=== PATIENT | male | born 1960 | race Caucasian/White ===

== ENCOUNTER 2021-09-22 14:39 | Emergency (ER) | payer OTHER, MEDICAID ==
[~2021-09-22] VITALS: Ht 165.1 cm; Wt 67.1 kg
[2021-09-22 14:45] VITALS: BP_SYST 119
[2021-09-22 16:20] LABS: BASOPHILS # (AUTO) 0.1 K/uL (0.0-0.2); BASOPHILS % (AUTO) 1.7 % (0.0-2.0); EOSINOPHILS # (AUTO) 0.2 K/uL (0.0-0.4); EOSINOPHILS % (AUTO) 2.2 % (0.0-4.0); HEMATOCRIT 42.4 % (36-54); HEMOGLOBIN 14.3 g/dL (14.0-18.0); LYMPHOCYTES # (AUTO) 3.2 K/uL (1.0-5.5); LYMPHOCYTES % (AUTO) 43.8 % (20.5-51.5); MEAN CORPUSCULAR HEMOGLOBIN 31 pg (27-31); MEAN CORPUSCULAR HGB CONC 34 % (32-36); MEAN CORPUSCULAR VOLUME 92 fL (79.0-98.0); MONOCYTES # (AUTO) 0.6 K/uL (0.0-1.0); MONOCYTES % (AUTO) 7.7 % (1.7-9.3); NEUTROPHILS # (AUTO) 3.2 K/uL (1.8-7.7); NEUTROPHILS % (AUTO) 44.6 % (40.0-70.0); PLATELET COUNT (AUTO) 215 K/uL (130-430); RED BLOOD CELL COUNT(AUTO) 4.61 MIL/uL (4.2-6.2); RED CELL DISTRIBUTION WIDTH 13.2 % (9.0-15.0); WHITE BLOOD COUNT (AUTO) 7.2 K/uL (4.8-10.8)
[2021-09-22 16:42] LABS: ANION GAP 12 (5-15); CHLORIDE 105 mmol/L (98-107); CREATININE 0.99 mg/dL (0.55-1.30); GLUCOSE 90 mg/dL (70-99); POTASSIUM 5.1 mmol/L (3.5-5.1); SODIUM SERUM 141 mmol/L (136-145); UREA NITROGEN, BLOOD 18 mg/dL (8-21)
[2021-09-22 16:57] LABS: BILIRUBIN,URINE NEGATIVE (NEGATIVE); BLOOD, URINE 2+ (NEGATIVE); COLOR,URINE YELLOW (YELLOW); GLUCOSE,URINE NEGATIVE (NEGATIVE); KETONES,URINE NEGATIVE (NEGATIVE); LEUKOCYTE ESTERASE ,URINE NEGATIVE (NEGATIVE); NITRITE, URINE NEGATIVE (NEGATIVE); PROTEIN URINE NEGATIVE (NEGATIVE); UROBILINOGEN,URINE 0.2 (0.2-1.0)
[2021-09-22 16:58] LABS: ALANINE AMINOTRANSFERASE 15 U/L (12-78); ALBUMIN 4.3 g/dL (3.4-4.8); ASPARTATE AMINOTRANSFERASE 21 U/L (10-37); TOTAL BILIRUBIN 0.2 mg/dL (0.0-1.0)
[2021-09-22 17:07] LABS: CLARITY/URINE SLIGHTLY HAZY (CLEAR)
[2021-09-22 17:23] LABS: GFR AFRICAN AMERICAN 99 mL/min (>90)
[2021-09-22 17:30] LABS: BACTERIA,URINE RARE /HPF (None Seen); MUCUS,URINE None Seen /LPF (None Seen); WBC,URINE 0-3 /HPF (0-3)
[2021-09-22 17:32] LABS: ACETAMINOPHEN < 1 ug/mL (1-30); ALCOHOL, BLOOD < 3 mg/dL (<10)
[2021-09-22 17:43] LABS: BARBITURATE, URINE NEGATIVE (NEG <=200)
[2021-09-22 17:44] LABS: BENZODIAZEPINE, URINE POSITIVE (NEG <=150); CANNABINOID, URINE NEGATIVE (NEG <=50); COCAINE, URINE NEGATIVE (NEG <=150); METHAMPHETAMINES SCREEN,URINE NEGATIVE (NEG <=500); OPIATE, URINE NEGATIVE (NEG <=100); PHENCYCLIDINE SCREEN,URINE NEGATIVE (NEG <=25); UR TRICYCLIC ANTIDEPRESSANTS POSITIVE (NEG <=300); URINE AMPHETAMINE NEGATIVE (NEG <=500); URINE METHADONE NEGATIVE (NEG <=200); URINE OXYCODONE SCREEN NEGATIVE (NEG <=100); URINE PROPOXYPHENE SCREEN NEGATIVE (NEG <=300)
[2021-09-22 23:43] VITALS: BP_SYST 127
== END 2021-09-22 23:43 ==
LOC: SED 14:39
DX: Z04.6 Encounter for general psychiatric examination, requested by authority (principal); R45.1 Restlessness and agitation; I10 Essential (primary) hypertension; Z20.822 Contact with and (suspected) exposure to COVID-19
CPT/HCPCS: 36415; 80053; 80307; 81000; 85025; 87426; 99285; G0480; G0481; G0482

== ENCOUNTER 2022-01-28 14:03 | Emergency (ER) | payer OTHER, MEDICAID ==
[~2022-01-28] VITALS: Ht 170.2 cm; Wt 81.6 kg
[2022-01-28 14:03] VITALS: BP_SYST 107
--- NOTE | 2022-01-28 14:03 | NUR ---
BROUGHT IN BY [place] [id number] [facility], PLACED IN BED IN HALLWAY, STAFF WITH PT UNTIL [facility] STAFF ARRIVE.
--- NOTE | 2022-01-28 14:20 | NUR ---
PER MEDICS, PT HAS PSEUDOSEIZURES AND DOES NOT LIKE THE [facility] HE IS IN. THEY WERE VERY FAMILIAR WITH PT. PT IS SELECTIVELY MUTE, NOT SPEAKING AT THIS TIME.
--- NOTE | 2022-01-28 14:44 | NUR ---
CALL PLACED TO [facility] HAMMOND TO QUESTION IF A SITTER WILL BE ARRIVING SINCE PT IS FROM A [facility]. SPOKE WITH NURSE AND PT IS ON A HOLD, THEY WILL SPEAK WITH THEIR MANAGER MANUFACTURING ABOUT SENDING A SITTER.
[2022-01-28 14:47] LABS: BASOPHILS % (AUTO) 0.5 % (0.0-2.0); EOSINOPHILS # (AUTO) 0.1 K/uL (0.0-0.4); EOSINOPHILS % (AUTO) 1.7 % (0.0-4.0); HEMATOCRIT 39.6 % (36-54); HEMOGLOBIN 13.9 g/dL (14.0-18.0); LYMPHOCYTES # (AUTO) 0.9 K/uL (1.0-5.5); LYMPHOCYTES % (AUTO) 12.7 % (20.5-51.5); MEAN CORPUSCULAR HEMOGLOBIN 32 pg (27-31); MEAN CORPUSCULAR HGB CONC 35 % (32-36); MEAN CORPUSCULAR VOLUME 90 fL (79.0-98.0); MONOCYTES # (AUTO) 0.4 K/uL (0.0-1.0); MONOCYTES % (AUTO) 5.1 % (1.7-9.3); NEUTROPHILS # (AUTO) 5.9 K/uL (1.8-7.7); PLATELET COUNT (AUTO) 215 K/uL (130-430); RED BLOOD CELL COUNT(AUTO) 4.39 MIL/uL (4.2-6.2); WHITE BLOOD COUNT (AUTO) 7.4 K/uL (4.8-10.8)
[2022-01-28 15:16] LABS: ANION GAP 7 (5-15); CALCIUM 8.4 mg/dL (8.4-11.0); CHLORIDE 105 mmol/L (98-107); CREATININE 0.81 mg/dL (0.55-1.30); GLUCOSE 97 mg/dL (70-99); SODIUM SERUM 140 mmol/L (136-145); UREA NITROGEN, BLOOD 20 mg/dL (8-21)
[2022-01-28 15:22] LABS: ALANINE AMINOTRANSFERASE 27 U/L (12-78); ALBUMIN 3.9 g/dL (3.4-4.8); ASPARTATE AMINOTRANSFERASE 26 U/L (10-37); LIPASE 176 U/L (73-393); TOTAL BILIRUBIN 0.3 mg/dL (0.0-1.0)
[2022-01-28 15:23] LABS: GFR AFRICAN AMERICAN 125 mL/min (>90)
[2022-01-28 15:25] LABS: ACETAMINOPHEN < 1 ug/mL (1-30); ALCOHOL, BLOOD < 3 mg/dL (<10)
--- NOTE | 2022-01-28 15:40 | NUR ---
PT PULLING AT CLOTHING AND PICKING AT SKIN, STAFF WITH PT AT ALL TIMES
[2022-01-28] MEDS ORDERED: DIPHENHYDRAMINE HCL 25 MG CAPSULE PO ONE (16:15)
--- NOTE | 2022-01-28 16:40 | NUR ---
JEAN FROM [facility] AT BEDSIDE OBSERVING PT.
[2022-01-28] MEDS ORDERED: DIPH-1081 PO (16:52)
[2022-01-28] MEDS ORDERED: TRIA15CR3 TP (16:52)
--- NOTE | 2022-01-28 20:39 | NUR ---
SYD VAN PT ENDORSED BY KRISTIE VAN, PT IN BED LOCKED IN LOW POSITION, SITTER AT BEDSIDE, PREVIOUS SITTER LEFT WITH NO NOTICE. PT CURRENTLY PENDING TRANSPORT TO [facility]. DARRYN MACK. WILL CONTINUE TO MONITOR.
--- NOTE | 2022-01-28 21:57 | NUR ---
PT REPORT GIVEN TO ROSS POWELL FOR TRANSPORT BACK TO [facility] PT IN STABLE CONDITION, CALLED REPORT TO OCTOBER (HOUSE SUP) AT FACILITY.
[2022-01-28 21:59] VITALS: BP_SYST 101
== END 2022-01-28 21:59 | disposition home or self-care (01) ==
LOC: SED 14:03
DX: G40.909 Epilepsy, unspecified, not intractable, without status epilepticus (principal); R21 Rash and other nonspecific skin eruption; I10 Essential (primary) hypertension; Z76.5 Malingerer [conscious simulation]; Z79.899 Other long term (current) drug therapy
CPT/HCPCS: 99284; 80053; 83690; 85025; 36415; 93005; G0480; Q0163; 99285; G0481; G0482